=== PATIENT | female | born 1965 | race Caucasian/White ===

== ENCOUNTER → 2016-06-05 | Outpatient (CLI) | payer BC ==
[~2016-06-05] MED LIST: TYL325X PO
--- NOTE | 2016-06-05 14:08 | MAMMOGRAPHY REPORT ---
BILATERAL DIGITAL SCREENING MAMMOGRAM TOMOSYNTHESIS WITH CAD: 06/05/2016 CLINICAL HISTORY: Routine screening. Patient has no complaints. TECHNIQUE: Breast tomosynthesis in addition to standard 2D mammography was performed. Current study was also evaluated with a Computer Aided Detection (CAD) system. COMPARISON: Comparison is made to exams dated: 05/06/2015 mammogram, 05/07/2014 mammogram, 05/01/2014 mammogram, 04/25/2013 mammogram, 03/29/2012 mammogram, and 03/30/2011 mammogram - [facility]. BREAST COMPOSITION: There are scattered areas of fibroglandular density in both breasts. FINDINGS: No suspicious masses, calcifications, or areas of architectural distortion are noted in e ither breast. There has been no significant interval change compared to prior exams. IMPRESSION: ACR BI-RADS CATEGORY 1: NEGATIVE There is no mammographic evidence of malignancy. A 1 year screening mammogram is recommended. The p atient will receive written notification of the results. Approximately 10% of breast cancers are not detected with mammography. A negative mammographic repor t should not delay biopsy if a clinically suggestive mass is present. Luli Cordero M.D. ah/:06/05/2016 07:53:00 Information Engineer: Marilyn CANCHOLA(R)(M), [facility] letter sent: Normal 1/2 BI-RADS Code: ACR BI-RADS Category 1: Negative
== END | disposition home or self-care (01) ==
LOC: C.MAMM 07:29
PROVIDERS: ATTEND Obstetrics & Gynecology
DX: Z12.31 Encounter for screening mammogram for malignant neoplasm of breast (principal)

== ENCOUNTER → 2016-10-08 | Outpatient (CLI) | payer BC | END | disposition home or self-care (01) | LOC: C.PAPS 11:36 | PROVIDERS: ATTEND Obstetrics & Gynecology | DX: Z01.419 Encounter for gynecological examination (general) (routine) without abnormal findings (principal) ==

== ENCOUNTER → 2017-06-22 | Outpatient (CLI) | payer OTHER ==
--- NOTE | 2017-06-24 08:01 | MAMMOGRAPHY REPORT ---
BILATERAL DIGITAL SCREENING MAMMOGRAM TOMOSYNTHESIS WITH CAD: 06/22/2017 CLINICAL HISTORY: Routine screening. Patient has no complaints. TECHNIQUE: Breast tomosynthesis in addition to standard 2D mammography was performed. Current study was also evaluated with a Computer Aided Detection (CAD) system. COMPARISON: Comparison is made to exams dated: 06/05/2016 mammogram, 05/06/2015 mammogram, 05/07/2014 u ltrasound, 05/07/2014 mammogram, 05/01/2014 mammogram, and 04/25/2013 mammogram - [facility]. BREAST COMPOSITION: There are scattered areas of fibroglandular density in both breasts. FINDINGS: There are a few benign rim calcifications in the breasts. No suspicious mass, architectura l distortion or cluster of microcalcifications is seen. IMPRESSION: ACR BI-RADS CATEGORY 1: NEGATIVE There is no mammographic evidence of malignancy. A 1 year screening mammogram is recommended. The pa tient will receive written notification of the results. Approximately 10% of breast cancers are not detected with mammography. A negative mammographic report should not delay biopsy if a clinically suggestive mass is present. Anaid Martin M.D. ay/:06/22/2017 15:17:40 Locomotive Oiler: Amie CANCHOLA(Whit)(M), [facility] letter sent: Normal 1/2 BI-RADS Code: ACR BI-RADS Category 1: Negative
== END | disposition home or self-care (01) ==
LOC: C.MAMM 07:07
PROVIDERS: ATTEND Obstetrics & Gynecology
DX: Z12.31 Encounter for screening mammogram for malignant neoplasm of breast (principal)

== ENCOUNTER → 2017-11-05 | Outpatient (CLI) | payer OTHER ==
[~2017-11-05] MED LIST changes: +DIAZ5TAB PO
== END | disposition home or self-care (01) ==
LOC: C.PAPS 13:51
PROVIDERS: ATTEND Obstetrics & Gynecology
DX: Z12.4 Encounter for screening for malignant neoplasm of cervix (principal)

== ENCOUNTER 2017-11-12 23:21 | Emergency (ER) | payer OTHER ==
[~2017-11-12] VITALS: Ht 157.5 cm; Wt 71.8 kg
[~2017-11-12 23:21] MED LIST changes: -DIAZ5TAB PO
[2017-11-12 23:39] VITALS: TEMP 36.9; Ht 157.5 cm; Wt 71.8 kg
[2017-11-13] MEDS ORDERED: KETOROLAC TROMETHAMINE 30 MG/ML VIAL IV STA (00:09)
[2017-11-13] MEDS ORDERED: DIAZEPAM INJ 5 MG/ML 2 ML CARP IV STA (00:09)
--- NOTE | 2017-11-13 00:16 | EMERGENCY ROOM VISIT NOTE ---
History Report prepared by Michael: Farrukh Ward Under the Supervision of: Dr. Marcia Patton D.O. First contact with patient: 23:55 Chief Complaint: SHOULDER PAIN Stated Complaint: RIGHT SHOULDER PAIN, HARD TO MOVE ARM History of Present Illness The patient is a 52 year old female who presents to the Emergency Room with complaints of intermittent right shoulder pain beginning three days ago. The patient states that she has a history of tendonitis inflammation in both of her shoulders from 3-5 years ago. 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 She reports that she has been having intermittent pain since, but states that her pain reached its worst at 1600 today. She notes that she occasionally gets a series of stabbing pains that typically last for two minutes each. She reports that her pain woke her up this evening. The patient states that her shoulder pain occasionally radiates down to her right arm. She notes that she has been taking Aleve, Excedrin, Motrin, and has been using ice with no relief of her symptoms. She reports that she last took Aleve at 2200 today. The patient states that she occasionally becomes nauseous when her pain worsens. She rates her pain as an 8/10. She denies any back pain, neck pain, abdominal pain, vomiting, and diarrhea. She notes that she does not have a previous history of any shoulder surgeries. She denies any alcohol use. Source of History: patient Onset: three days ago Position: shoulder (right) Symptom Intensity: 8/10 Quality: stabbing Timing: intermittent Associated Symptoms: + nausea, No neck pain, No vomiting, No abdominal pain , No back pain, No diarrhea Note: The patient also complains of right arm pain. Review of Systems See HPI for pertinent positives & negatives. A total of 10 systems reviewed and were otherwise negative. Past Medical & Surgical Medical Problems: (1) Syncope (2) Tendonitis Surgical Problems: (1) Hx of hysterectomy Family History Cancer Diabetes mellitus Gallbladder disease Heart disease Hypertension Social History Smoking Status: Never Smoker Alcohol Use: none Marital Status: Housing Status: lives with family Occupation Status: employed Current/Historical Medications Scheduled Diazepam (Valium), 5 MG PO QID Allergies Coded Allergies: BEE STING (Verified Allergy, Unknown, UNKNOWN, 11/13/17) Physical Exam Vital Signs Date Time Temp Pulse Resp B/P (MAP) Pulse Ox O2 Delivery O2 Flow Rate FiO2 11/13/17 01:47 66 18 123/79 95 Room Air 11/12/17 23:39 36.9 98 18 133/87 98 Room Air Physical Exam Neck: Supple; no nuchal rigidity, cervical lymphadenopathy. No pain to palpation over the posterior cervical spine. Heart: Regular rate and rhythm. There is a normal S1 and S2 with no murmurs, clicks, or gallops appreciated. Lungs: Clear to auscultation bilaterally with no wheezes, rales, or rhonchi. Abdomen: Soft, completely nontender, nondistended, with good bowel sounds. There are no palpable pulsatile masses or hepatosplenomegaly. There is no guarding, rigidity, or rebound noted. Extremities: No evidence of cyanosis, clubbing, or edema. There are easily palpable peripheral pulses. Right upper extremity has exquisite tenderness over both heads of the biceps tendon, extreme pain with even slight ROM of rotator cuff. Skin: warm and dry with good turgor and no rashes. Medical Decision & Procedures ER Provider Diagnostic Interpretation: Radiology results as stated below per my review and interpretation: RIGHT SHOULDER X-RAY: No obvious AC separation. No dislocation. Questionable Hill-Sachs deformity. Medications Administered Medications (Trade) Dose Ordered Sig/Elean Route Start Time Stop Time Status Last Admin Dose Admin Ketorolac Tromethamine (Toradol Inj) 30 mg NOW STAT IV 11/13/17 00:09 11/13/17 00:11 DC 11/13/17 00:28 30 MG Diazepam (Valium Inj) 5 mg STK-MED ONCE .ROUTE 11/13/17 00:26 11/13/17 00:27 DC 11/13/17 00:26 5 MG Procedure Toradol Inj 30mg IV. Valium Inj 5mg IV. ED Course 0001: The patient was evaluated in room B2. A complete history and physical examination were performed. Nursing notes and previous electronic medical records were reviewed. IV lock was established. 0009: Toradol Inj 30mg IV 0026: Valium Inj 5mg IV. The patient will go for x-ray of the right shoulder. 0128: I reevaluated and updated the patient. She feels much better. She will be placed in an arm sling. 0210: Upon reevaluation, the patient is stable. I discussed findings and results with her. She verbalized agreement of the treatment plan. The patient was discharged home. Medical Decision The patient is a 52 year old female who presents to the Emergency Room with complaints of intermittent right shoulder pain beginning three days ago. Differential diagnoses include: biceps tendon rupture, tendonitis, rotator cuff strain, and rotator cuff tear. This is a 52-year-old female patient presents to the emergency department with severe pain and muscle spasms in the right shoulder over the past couple of days. Patient has a history of tendinitis in that shoulder which required steroid injections. It seems that she is suffering from tendinitis again. She had significant relief after receiving IV Toradol and IV Valium. She was placed in an arm sling for comfort. The patient has an appointment scheduled with her orthopedic surgeon in 2 days. I have asked her to continue using NSAIDs at home have given her a prescription for Valium to use as a muscle relaxant. She is feeling much better at the time of discharge. Medication Reconcilliation Current Medication List: was personally reviewed by me Blood Pressure Screening Patient's blood pressure: Normal blood pressure Blood pressure disposition: Did not require urgent referral Impression Primary Impression: Biceps tendonitis on right Scribe Attestation The scribe's documentation has been prepared under my direction and personally reviewed by me in its entirety. I confirm that the note above accurately reflects all work, treatment, procedures, and medical decision making performed by me. Departure Information Dispostion Home / Self-Care Prescriptions Diazepam (VALIUM) 5 Mg Tab 5 MG PO QID, #20 TAB Prov: Marcia Patton D.O. 11/13/17 Referrals Irving Yang M.D. (PCP) Forms HOME CARE DOCUMENTATION FORM, IMPORTANT VISIT INFORMATION Patient Instructions My [facility] Additional Instructions Rest. Use sling for comfort Advil liqui-gels - 800mg every 8 hours with food for pain Valium - 1 tab. every 6 hours for muscle spasm follow up with Dr. Moseley on Wednesday
[2017-11-13] MEDS ORDERED: DIAZEPAM 5 MG/ML INJ 10ML VIAL ONE (00:26)
[2017-11-13 01:47] VITALS: BP 123/79; PULSE 66; O2SAT 95
[2017-11-13] MEDS ORDERED: DIAZ5TAB PO (02:01)
--- NOTE | 2017-11-13 06:32 | DIAGNOSTIC IMAGING REPORT ---
R SHOULDER MIN 2 VIEWS ROUTINE CLINICAL HISTORY: Right shoulder pain. COMPARISON: None. DISCUSSION: No acute fractures or dislocations are visualized. There is a tiny peritendinous calcification which may represent calcific tendinitis. IMPRESSION: 1. Possible calcific tendinitis 2. No fractures or dislocations identified. Electronically signed by: Bk Amaya M.D. 11/13/2017 6:31 AM Dictated Date/Time: 11/13/2017 6:30 AM
== END 2017-11-13 02:10 | disposition home or self-care (01) ==
LOC: C.EDB 23:22
DX: M75.21 Bicipital tendinitis, right shoulder (principal); R11.0 Nausea; Z91.030 Bee allergy status